=== PATIENT | female | born 1970 | race Caucasian/White ===

== ENCOUNTER → 2016-05-26 | Outpatient (CLI) | payer BC ==
--- NOTE | 2016-05-30 09:45 | MM ---
Reason for exam: screening (asymptomatic). Last mammogram was performed 2 years and 5 months ago. History: Benign excisional biopsy of the right breast, April 12, 2002. Took hormonal contraceptives for 10 years. Physical Findings: A clinical breast exam by your physician is recommended on an annual basis and results should be correlated with mammographic findings. MG 3D Screening Mammo W/Cad Bilateral CC and MLO view(s) were taken. Prior study comparison: January 02, 2014, bilateral MG screening mammo w CAD. March 28, 2002, bilateral diagnostic mammogram. The breast tissue is heterogeneously dense. This may lower the sensitivity of mammography. There is chronic nodularity in the left breast. No significant changes when compared with prior studies. ASSESSMENT: Benign, BI-RAD 2 RECOMMENDATION: Routine screening mammogram of both breasts in 1 year.
== END ==
LOC: RADMAMWWP 14:47
PROVIDERS: ATTEND Obstetrics & Gynecology
DX: Z12.31 Encounter for screening mammogram for malignant neoplasm of breast (principal)
CPT/HCPCS: 77063; G0202

== ENCOUNTER → 2016-12-21 | Outpatient (CLI) | payer BC ==
[2016-12-21 21:15] LABS: CH 29.6; CHCM 32.7; HCT 40.8 % (34.0-46.0); HDW 2.43; HGB 12.8 gm/dL (11.4-16.0); MCH 28.5 pg (25.0-35.0); MCHC 31.4 g/dL (31.0-37.0); MCV 90.8 fL (80.0-100.0); Mean Platelet Volume 7.7; RBC 4.49 m/uL (3.80-5.40); RDW 13.6 % (11.5-15.5); WBC 4.8 k/uL (3.8-10.6)
[2016-12-22 01:12] LABS: Estradiol 142.1 pg/mL
== END ==
LOC: MMGSC 09:48
PROVIDERS: ATTEND Obstetrics & Gynecology
DX: N93.8 Other specified abnormal uterine and vaginal bleeding (principal); R53.83 Other fatigue
CPT/HCPCS: 36415; 82670; 83001; 84403; 84439; 84443; 85027; 88305

== ENCOUNTER → 2017-01-10 | Outpatient (CLI) | payer BC ==
[2017-01-10 15:16] LABS: Basophils % (A) 0 %; CH 29.1; CHCM 32.9; Eosinophils # (A) 0.1 k/uL (0-0.7); Eosinophils % (A) 2 %; HCT 36.4 % (34.0-46.0); HDW 2.38; HGB 11.6 gm/dL (11.4-16.0); Luc % (Auto) 1; Lymphocytes # (A) 1.6 k/uL (1.0-4.8); Lymphocytes % (A) 22 %; MCH 28.4 pg (25.0-35.0); MCHC 31.8 g/dL (31.0-37.0); MCV 89.1 fL (80.0-100.0); Mean Platelet Volume 7.9; Monocytes # (A) 0.4 k/uL (0-1.0); Monocytes % (A) 6 %; Neutrophils # (A) 5.1 k/uL (1.3-7.7); Neutrophils % (A) 70 %; RBC 4.08 m/uL (3.80-5.40); RDW 14.9 % (11.5-15.5); WBC 7.4 k/uL (3.8-10.6); WBC (Perox) 7.82
== END | disposition home or self-care (01) ==
LOC: LABWHC1 14:43
PROVIDERS: ATTEND Obstetrics & Gynecology
DX: Z01.812 Encounter for preprocedural laboratory examination (principal); N93.8 Other specified abnormal uterine and vaginal bleeding
CPT/HCPCS: 36415; 85025

== ENCOUNTER 2022-07-01 10:30 | Day surgery (SDC) | payer BC ==
[2022-06-29 13:10] VITALS: BMI 26.9
[~2022-07-01 10:30] MED LIST: LACTATED RINGERS 1,000 ML IV SCH
[2022-07-01 13:18] VITALS: RESP 16; TEMP 97.9
[2022-07-01] MEDS ORDERED: LIDOCAINE 1% (10MG/ML) FOR IV START INTRADERMA ONE (13:24)
[2022-07-01] MEDS ORDERED: PROPOFOL 10 MG/ML 20 ML VIAL IV ONE (14:17)
--- NOTE | 2022-07-01 14:37 | P.PCN ---
Date of Procedure: 07/01/22 Procedure(s) Performed: BRIEF HISTORY: Patient is a 52-year-old pleasant white female scheduled for an elective colonoscopy as a part of screening for colon cancer and family history of colon cancer diagnosed followed at age 52. PROCEDURE PERFORMED: Colonoscopy snare polypectomy. PREOPERATIVE DIAGNOSIS: Screening for colon cancer and family history of colon cancer. IV sedation per Anesthesia. PROCEDURE: After informed consent was obtained, the patient, was brought into the endoscopy unit. IV sedation was administered by Anesthesia under continuous monitoring. Digital rectal examination was normal. Initially the Olympus CF-160 flexible video colonoscope was then inserted in the rectum, gradually advanced into the cecum without any difficulty. Careful examination was performed as the scope was gradually being withdrawn. Ileocecal valve and the appendiceal orifice were visualized and appeared normal. Prep was fair.. Mucosa of the cecum, ascending colon, transverse colon, descending colon, sigmoid colon, and rectum appeared normal. In the rectosigmoid colon there was a 1 cm broad-based polyp removed by snare polypectomy. Retroflexion was performed in the rectum and no lesions were seen. The patient tolerated the procedure well. IMPRESSION: 1 cm rectosigmoid polyp status post-polypectomy Rest of the colon appeared normal. RECOMMENDATIONS: Findings of this examination were discussed with the patient as well as her family. She was advised to follow with the biopsy results and if the biopsy results adenoma she can have a repeat colonoscopy in 3 years.
[2022-07-01 14:56] VITALS: BP 120/75; PULSE 57
== END 2022-07-01 15:15 | disposition home or self-care (01) ==
LOC: ORWHC2ENDO 10:30
PROVIDERS: ATTEND Internal Medicine Gastroenterology
DX: Z12.11 Encounter for screening for malignant neoplasm of colon (principal); D12.7 Benign neoplasm of rectosigmoid junction; K21.9 Gastro-esophageal reflux disease without esophagitis; K44.9 Diaphragmatic hernia without obstruction or gangrene; Z98.891 History of uterine scar from previous surgery; Z98.890 Other specified postprocedural states; Z88.0 Allergy status to penicillin; Z91.040 Latex allergy status; Z80.0 Family history of malignant neoplasm of digestive organs
CPT/HCPCS: 81025; 88305; 45385; J2704

== ENCOUNTER → 2023-03-23 | Outpatient (CLI) | payer BC ==
--- NOTE | 2023-03-27 19:26 | MM ---
Reason for Exam: Screening (asymptomatic). Last mammogram was performed 6 year(s) and 10 month(s) ago. Patient History: Menarche at age 12. First Full-Term at age 21. Patient used Hormonal Contraceptives for 10 years. 04/12/2002, Benign Excisional Biopsy on the right side. Risk Values: Fiona 5 year model risk: 0.9%. NCI Lifetime model risk: 8.4%. Prior Study Comparison: 03/28/2002 Bilateral Diagnostic Mammogram, [facility]. 01/02/2014 Bilateral Screening Mammogram, [facility]. 05/26/2016 Bilateral Screening Mammogram, [facility]. Tissue Density: The breast tissue is heterogeneously dense. This may lower the sensitivity of mammography. Findings: Analyzed By CAD. Chronic nodularity on the left. However, an asymmetric density laterally on the left CC view is more defined. This may represent superimposition shadow but further evaluation is recommended. Overall Assessment: Incomplete: need additional imaging evaluation, BI-RAD 0 Management: Special View Mammogram of the left breast. Diagnostic Breast Ultrasound of the left breast. Additional views to include spot 3-D CC, spot 3-D MLO, and 3-D ML views. Subsequent whole left breast ultrasound given dense breast tissue. [facility] will attempt to contact patient to return for supplemental views and ultrasound if indicated. Electronically signed and approved by: Ramin Ramsey M.D. Radiologist
== END | disposition home or self-care (01) ==
LOC: RADMAMWWP 15:56
PROVIDERS: ATTEND Family Medicine
DX: Z12.31 Encounter for screening mammogram for malignant neoplasm of breast (principal)
CPT/HCPCS: 77067

== ENCOUNTER → 2023-03-30 | Outpatient (CLI) | payer BC ==
--- NOTE | 2023-03-30 14:00 | MM ---
Reason for Exam: Additional evaluation requested from abnormal screening. Last screening mammogram was performed less than 1 month ago. Patient History: Menarche at age 12. First Full-Term at age 21. Patient used Hormonal Contraceptives for 10 years. 04/12/2002, Benign Excisional Biopsy on the right side. Risk Values: Fiona 5 year model risk: 0.9%. NCI Lifetime model risk: 8.4%. Prior Study Comparison: 01/02/2014 Bilateral Screening Mammogram, [facility]. 05/26/2016 Bilateral Screening Mammogram, [facility]. 03/23/2023 Bilateral MG screening mammo w CAD, [facility]. Tissue Density: Left: The breast tissue is heterogeneously dense. This may lower the sensitivity of mammography. Findings: Analyzed By CAD. 1.9 cm circumscribed mass 2 to 3:00 position left breast anterior to middle depth persists. Further ultrasound evaluation is recommended. Overall Assessment: Incomplete: need additional imaging evaluation, BI-RAD 0 Management: Diagnostic Breast Ultrasound of the left breast. Electronically signed and approved by: Ramin Ramsey M.D. Radiologist
--- NOTE | 2023-03-30 14:33 | USB ---
Reason for Exam: Additional evaluation requested from abnormal screening. Patient History: Menarche at age 12. First Full-Term at age 21. Patient used Hormonal Contraceptives for 10 years. 04/12/2002, Benign Excisional Biopsy on the right side. Risk Values: Fiona 5 year model risk: 0.9%. NCI Lifetime model risk: 8.4%. Technique: Method: Targeted. Prior Study Comparison: 01/02/2014 Bilateral Screening Mammogram, [facility]. 05/26/2016 Bilateral Screening Mammogram, [facility]. 03/23/2023 Bilateral MG screening mammo w CAD, [facility]. Findings: The upper outer quadrant of the left breast, the lower outer quadrant of the left breast, the axilla of the left breast and the retroareolar of the left breast were scanned. Targeted ultrasound lateral half of the left breast 12:00 to 6:00 including thinning of the subareolar region and axilla. At the 2:00 position, 2 cm from the nipple, likely mammographic correlate, there is an indeterminate oval hypoechoic mass measuring 1.6 x 1.4 x 1.1 cm. Some images show posterior shadowing which may be due to dense attenuating breast tissue. Unclear if this is solid mass or debris-filled cyst. Further tissue sampling is recommended. No other solid or cystic lesion or axillary lymphadenopathy. Overall Assessment: Suspicious, BI-RAD 4 Management: Ultrasound Core Biopsy of the left breast. Electronically signed and approved by: Ramin Ramsey M.D. Radiologist
== END | disposition home or self-care (01) ==
LOC: RADMAMWWP 13:27
PROVIDERS: ATTEND Family Medicine
DX: R92.332 Mammographic heterogeneous density, left breast (principal)
CPT/HCPCS: 77061; 77065

== ENCOUNTER → 2023-05-12 | Outpatient (CLI) | payer BC ==
--- NOTE | 2023-05-15 10:45 | CT ---
EXAMINATION TYPE: CT sinus wo con CT DLP: 471.2 mGycm, Automated exposure control for dose reduction was used. DATE OF EXAM: 05/12/2023 2:24 PM COMPARISON: . CLINICAL INDICATION:Female, 53 years old with history of R09.82 POSTNASAL DRIP; , Deviated septum. Po stnasal drip. Possible tooth infection left upper side x3-4yrs. TECHNIQUE: Multiple thin axial images were obtained through the paranasal sinuses without the use of IV contrast. Additional coronal and sagittal reformatted images were submitted for evaluation. Contrast used: none Oral contrast used: none FINDINGS: Frontal sinuses: Normally developed and aerated. Frontal Recess: Clear Maxillary Sinuses: Normally developed and aerated. Maxillary Infundibula(OM[facility]): Clear, . Ethmoid sinuses: Normally developed and aerated. Ethmoidal notch: Protected and abutting the lateral lamina. Sphenoid sinuses: Normally developed and aerated. There is normal sphenoid sinus pneumatization witho ut evidence of dehiscence. No dehiscence of carotid canal. No evidence of optic nerve dehiscence wit hin the sphenoid sinus. No evidence of Onodi cells. Sphenoethmoidal recesses: Clear. Nasal septum: Within normal limits.. Nasal Turbinates: Within normal limits. Mastoid air cells & middle ears: The air cells are clear. The middle ears are grossly unremarkable. Modified Soft tissues & Brain: Partially seen without gross abnormality. Globes are intact. Other: Cribriform plate demonstrates symmetric plate. No evidence of bony dehiscence of skull base. Lamina papyracea is intact without evidence of remote orbital fracture or orbital prolapse into the e thmoid sinus. IMPRESSION: 1. No significant mucosal sinus disease. 2. The ostiomeatal units, frontonasal and sphenoethmoidal recesses are predominantly clear..
== END | disposition home or self-care (01) ==
LOC: RADCTMAIN 14:11
PROVIDERS: ATTEND Otolaryngology
DX: R09.82 Postnasal drip (principal); J34.2 Deviated nasal septum
CPT/HCPCS: 70486

== ENCOUNTER → 2023-05-22 | Day surgery (SDC) | payer BC ==
--- NOTE | 2023-05-26 11:33 | MM ---
Reason for Exam: Post Procedure Mammogram. Last screening mammogram was performed 2 month(s) ago. Patient History: Menarche at age 12. First Full-Term at age 21. Patient used Hormonal Contraceptives for 10 years. 04/12/2002, Benign Excisional Biopsy on the right side. Risk Values: Fiona 5 year model risk: 0.9%. NCI Lifetime model risk: 8.3%. Prior Study Comparison: 05/26/2016 Bilateral Screening Mammogram, [facility]. 03/23/2023 Bilateral MG screening mammo w CAD, [facility]. 03/30/2023 Left MG 3D work up w/cad LT, [facility]. Tissue Density: Left: The breasts are heterogeneously dense, which may obscure small masses. Pathology Description: Location: 2 o'clock, upper outer quadrant. Marker Left Behind. Needle Type: Celero Cores: 4 Gauge: 12 The procedure of ultrasound guided core biopsy was explained to the patient. Benefits, alternatives, and risks were discussed. An informed consent was then obtained. The patient was placed in supine positioning for imaging and for the procedure. The overlying skin was prepped and draped in usual sterile fashion. Lidocaine buffered with bicarbonate was used as anesthetic into the skin and subcutaneous tissue up to area of concern in the left 2:00 breast. Under ultrasound guidance, a 12-gauge vacuum assisted biopsy gun device was used to obtain 4 core samples. Following this, a biopsy clip was left in lesion. The patient tolerated the procedure well without any immediate complication. The patient was kept in the radiology department for short stay after the procedure and then discharged home in stable condition. Postprocedure mammogram: The patient was transferred to mammography for physician ordered post procedure mammogram for clip placement verification. Impression: Successful, uncomplicated ultrasound guided core biopsy of area of concern in the left 2:00 breast, full pathology results to follow. Pathology Results: Result: Benign, Fibroadenoma. Pathology and radiology were reviewed. Findings are concordant. LEFT BREAST, TWO O'CLOCK, ULTRASOUND GUIDED NEEDLE CORE BIOPSY: Fibroadenoma. Overall Assessment: Benign Assessment: MG diagnostic mammo LT wo CAD. - Left: Benign, BI-RAD 2. Management: Diagnostic Breast Ultrasound of the left breast in 6 months. Electronically signed and approved by: Josesito Gonzalez M.D. Radiologis
== END ==
LOC: RADUSWWP 12:33
PROVIDERS: ATTEND Surgery
DX: D24.2 Benign neoplasm of left breast (principal); Z92.0 Personal history of contraception
CPT/HCPCS: 88305; 77065; 19083; A4648

== ENCOUNTER → 2023-11-22 | Outpatient (CLI) | payer BC | END | disposition home or self-care (01) | LOC: RADMAMWWP 14:26 | PROVIDERS: ATTEND Family Medicine | DX: R92.8 Other abnormal and inconclusive findings on diagnostic imaging of breast (principal) | CPT/HCPCS: 77061; 77065 ==

== ENCOUNTER → 2024-02-23 | Outpatient (CLI) | payer BC ==
--- NOTE | 2024-02-25 13:37 | MR ---
EXAMINATION TYPE: MR shoulder LT wo con DATE OF EXAM: 02/23/2024 7:44 PM COMPARISON: Outside left shoulder x-ray February 20, 2024 CLINICAL INDICATION: Female, 53 years old with history of LEFT SHOULDER PAIN, Left shoulder pain and numbness for 4 months IV Contrast: cc (None if empty) TECHNIQUE: Multiplanar, multisequence imaging of the left shoulder is performed without contrast. FINDINGS: Rotator Cuff: Some areas of increased signal in the supraspinatus and infraspinatus tendon along with subscapularis tendon. Rotator cuff muscle bulk is preserved. Acromioclavicular Joint: Mild superior capsular hypertrophy. No significant spurring or narrowing. Glenohumeral Joint: Small joint effusion. No significant spurring. Labrum: Increased signal consistent with tear through the superior labrum. Biceps Tendon: The long head of biceps is in normal location within bicipital groove. Bone marrow signal: Tiny subchondral cystic change involving the distal clavicle and superior posteri or lateral aspect of the humeral head. Other: No additional significant abnormality is appreciated. IMPRESSION: 1. SLAP type superior labral tear. 2. Mild tendinosis of the rotator cuff tendons. No significant tear. [facility], , 02/25/2024 1:35 PM
== END | disposition home or self-care (01) ==
LOC: RADMRIMAIN 18:47
PROVIDERS: ATTEND Orthopaedic Surgery
DX: M67.814 Other specified disorders of tendon, left shoulder (principal)

== ENCOUNTER → 2024-06-19 | Outpatient (CLI) | payer BC ==
[2024-06-19 19:03] LABS: Basophils # (A) 0.02 X 10*3/uL (0.00-0.10); Basophils % (A) 0.4 %; Eosinophils % (A) 1.8 %; HCT 39.8 % (37.2-46.3); HGB 13.2 g/dL (12.0-15.0); Lymphocytes # (A) 2.05 X 10*3/uL (0.90-5.00); Lymphocytes % (A) 36.2 %; MCH 28.6 pg (27.0-32.0); MCHC 33.2 g/dL (32.0-37.0); MCV 86.1 FL (80.0-97.0); Mean Platelet Volume 10.8 FL (9.5-12.2); Monocytes # (A) 0.44 X 10*3/uL (0.20-1.00); Monocytes % (A) 7.8 %; NRBC Per 100 WBC 0 X 10*3/uL (0.00-0.01); Neutrophils # (A) 3.05 X 10*3/uL (1.80-7.70); Neutrophils % (A) 53.6 %; Platelet Count 211 X 10*3/uL (140-440); RBC 4.62 X 10*6/uL (4.10-5.20); RDW 13.7 % (11.5-14.5); WBC 5.67 X 10*3/uL (4.50-10.00)
[2024-06-19 19:11] LABS: Potassium 4.1 mmol/L (3.5-5.5)
== END | disposition home or self-care (01) ==
LOC: LABPAT 14:47
PROVIDERS: ATTEND Orthopaedic Surgery
DX: Z01.812 Encounter for preprocedural laboratory examination (principal); M75.42 Impingement syndrome of left shoulder
CPT/HCPCS: 80051; 85025

== ENCOUNTER 2024-07-04 05:34 | Day surgery (SDC) | payer BC ==
--- NOTE | 2024-07-03 23:55 | HP ---
HISTORY AND PHYSICAL Surgery is scheduled for 07/04/2024. HISTORY OF PRESENT ILLNESS: Charley Arrieta is a 54-year-old patient seen with progressive left shoulder pain. We discussed options regarding treatment. She elected to proceed with left shoulder arthroscopy. Consents obtained. PAST MEDICAL HISTORY: Noncontributory. SURGICAL HISTORY: section, cholecystectomy. MEDICATIONS: 1. Clonidine. 2. Ibuprofen. 3. Wellbutrin. ALLERGIES: Penicillin. SOCIAL HISTORY: She denies current tobacco use. PHYSICAL EXAMINATION: Evaluation of her left knee, flexion is 110 degrees. Abduction is 90 degrees. External rotation is 40 degrees with pain and some weakness. She has anterior lateral acromion. Bicipital groove and anterior glenohumeral joint along with the rotator cuff area. She has a positive impingement sign, 80 degrees, a positive cross-body adduction sign, a positive apprehension sign. Distal neurovascular exam is intact. IMAGING STUDIES: Radiographs of the left shoulder revealed a type 2 acromion along with cystic changes of the greater tuberosity. MRI of the left shoulder revealed a SLAP labral tear. IMPRESSION: 1. Left shoulder SLAP labral tear. 2. Left shoulder impingement with rotator cuff tendinitis and bicipital tendinitis. PLAN: Left shoulder arthroscopy with subacromial decompression, labral debridement versus repair. MMODL / IJN: [id number] /
[2024-07-04] MEDS: IV FLUID CONTINUATION 1,000 ML IV ONE (06:17)
[2024-07-04] MEDS: fentaNYL (PF) 50 MCG/ML 2 ML AMP IVP STA (06:51)
[2024-07-04] MEDS: MIDAZOLAM 2 MG/2 ML VIAL IV ONE (06:51)
[2024-07-04] MEDS: LACTATED RINGERS 1,000 ML BAG IV STA (07:03)
[2024-07-04] MEDS: DEXAMETHASONE SOD PHOSPHATE 4 MG/ML 1 ML VIAL IVP STA (07:04)
[2024-07-04] MEDS: ONDANSETRON 4 MG/2 ML VIAL IVP STA (07:05)
[2024-07-04] MEDS ORDERED: fentaNYL (PF) 50 MCG/ML 2 ML AMP IVP PRN (07:05)
--- NOTE | 2024-07-04 07:06 | P.ANPRN ---
Procedure Note - Anesthesia - Nerve Block Performed Left Interscalene Single Time Out Performed: Yes Date of Procedure: 07/04/24 Procedure Start Time: 06:51 Procedure Stop Time: 06:57 Location of Patient: PreOp Indication: Acute Post-Operative Pain, Requested by Surgeon Sedation Type: Sedate with meaningful contact maintained Preparation: Sterile Prep Position: Supine Needle Types: Pajunk Needle Gauge: 21 Ultrasound used to visualize needle placement: Yes Ultrasound used to observe medication spread: Yes Injectate: 0.5% Ropivacaine (see comment for volume) (30 mL +4 mg dexamethasone) Blood Aspirated: No Pain Paresthesia on Injection Noted: No Resistance on Injection: Normal Image Stored and Saved: Yes Events: Uneventful and Well Tolerated
[2024-07-04] MEDS ORDERED: DEXAMETHASONE SOD PHOSPHATE 4 MG/ML 1 ML VIAL ONE (07:18)
[2024-07-04] MEDS ORDERED: PROPOFOL 10 MG/ML 20 ML VIAL IV ONE (07:18)
[2024-07-04] MEDS ORDERED: MIDAZOLAM 2 MG/2 ML VIAL ONE (07:18)
[2024-07-04] MEDS ORDERED: LIDOCAINE 1% INJ 10MG/ML (20 ML MDV) ONE (07:18)
[2024-07-04] MEDS ORDERED: SUCCINYLCHOLINE CHLORIDE 200 MG/10 ML VIAL IV ONE (07:18)
[2024-07-04] MEDS ORDERED: ROPIVACAINE 5 MG/ML 30 ML VIAL ONE (07:18)
[2024-07-04] MEDS: ceFAZolin 2 GM in DEXTROSE 5% IN WATER 50 ML IVPB PRN (07:38)
--- NOTE | 2024-07-04 09:15 | P.OP ---
Date of Procedure: 07/04/24 Preoperative Diagnosis: Left shoulder impingement Postoperative Diagnosis: 1. Left shoulder rotator cuff tear 2. Left shoulder bicipital tendinitis 3. Left shoulder impingement 4. Left shoulder superficial superior labral tear Procedure(s) Performed: 1. Left shoulder arthroscopic rotator cuff repair 2. Left shoulder arthroscopic biceps tenodesis 3. Left shoulder arthroscopic subacromial decompression 4. Left shoulder arthroscopic debridement labral tear Implants: 2Arthrex 4.75 swivel lock anchors Anesthesia: GETA, regional (Interscalene block) Surgeon: Bassam Taylor Microarray Specialist #1: Reggie Junior Estimated Blood Loss (ml): 7 Pathology: none sent Condition: stable Disposition: PACU Indications for Procedure: 54-year-old patient was seen with progressive left shoulder pain. After treatment options were discussed, she elected to proceed with arthroscopy. Operative Findings: See description of procedure Description of Procedure: Patient underwent an interscalene block by department of anesthesia. The patient was then taken to the operative suite. The patient underwent a general anesthetic by the department of anesthesia. The patient was placed into a lateral position and secured. There was appropriate padding of the bony prominence. Left shoulder was then prepped and draped in normal sterile orthopedic fashion. We placed the extremity in 10 pounds of longitudinal traction. A posterior incision was now made for a posterior working portal site. The trocar and cannula were inserted into the glenohumeral joint. Arthroscopy was initiated. Spinal needle was now inserted anteriorly, to ascertain the anterior working portal site. An incision was now made in that area, a trocar was inserted followed by a probe. There was superficial tearing of the superior labrum. There was no significant chondromalacia present. There was hyperemia of the biceps tendon along with some tearing proximally. I used a motorized shaver and debrided out the superficial labral tear. I now inserted a cannula through the anterior portal site. I passed a loop and tack type stitch through the biceps tendon and then released it from the superior labral anchor. With the assistance of Sky DE LA ROSA I punched a hole at the interval for insertion of an anchor. The suture line was not passed through the eyelet of an Arthrex 4.75 swivel lock anchor. I now placed the eyelet into the prepunch hole, held in position while Sky DE LA ROSA tensioned the suture and deployed the anchor with good fixation noted. The residual suture limb was now clipped. There was a stable appearing biceps tenodesis present. Instruments were now removed from the glenohumeral joint. Utilizing the posterior working portal site, the trocar and cannula were inserted into the subacromial space. Arthroscopy initiated. I made an incision 2 fingerbreadths lateral to the acromion. I introduced my trocar followed by my ArthroCare ablator. I now began ablating thick subacromial bursal tissue, which exposed the undersurface of the anterior acromion. There was diminished subacromial space. There was a very prominent anterior acromion. A motorized bur was introduced and a subacromial decompression was performed. I now evaluated the acromioclavicular joint. There was some moderate osteoarthritis but not enough to warrant a Luz Maria procedure. I turned my attention to the rotator cuff tendon. There was a full-thickness perforation on the anterior aspect of the distal supraspinatus. I debrided the margins getting down to stable tendon tissue. The tear/defect measured about a centimeter. I abraded the footprint with a motorized bur. I now passed 2 everted mattress sutures through good bites of rotator cuff tendon. I now punched a hole in the footprint area for insertion of an anchor. All 4 limbs of suture were passed through the eyelet of an Arthrex 4.75 swivel lock anchor. I placed the eyelet into the prepunch hole. I held in position while Sky DE LA ROSA tensioned all 4 limbs of suture and deployed the anchor with good fixation noted. All residual suture limbs were now clipped. We had good compression of the tendon along the entire footprint. Instruments now removed from the portal sites. All portal sites were approximated with nylon suture. Sterile dressings were applied followed by a shoulder immobilizer. Reggie DE LA ROSA assisted in all aspects this case. The patient was awakened, transferred to a bed, and taken to recovery in stable condition.
[2024-07-04 09:24] VITALS: TEMP 96.8
[2024-07-04 11:00] VITALS: BP 129/73; PULSE 64; RESP 16
== END 2024-07-04 11:15 | disposition home or self-care (01) ==
LOC: OR 05:34
PROVIDERS: ATTEND Orthopaedic Surgery
DX: M75.42 Impingement syndrome of left shoulder (principal); M75.102 Unspecified rotator cuff tear or rupture of left shoulder, not specified as traumatic; M75.22 Bicipital tendinitis, left shoulder; M25.812 Other specified joint disorders, left shoulder; S43.432A Superior glenoid labrum lesion of left shoulder, initial encounter; G89.18 Other acute postprocedural pain; Z88.0 Allergy status to penicillin
CPT/HCPCS: 29807; 29827; 29826; 29828; 64415; 81025; C1713 ×3; J2250; J0330; J1100; J0690; J2405; J2003; J3010; J2795; J2704